=== PATIENT | female | born 1955 | race Caucasian/White ===

== ENCOUNTER 2024-04-09 08:36 | Outpatient (REF) | payer MEDICARE, SELFPAY ==
--- NOTE | ~2024-04-09 | XR_ITS ---
EXAMINATION: XR KNEE, RIGHT CLINICAL INFORMATION: M25.561 - Pain in right knee COMPARISON: None available. TECHNIQUE: Three views of the right knee. FINDINGS: Joint space narrowing involving the medial lateral compartment. Marginal osteophyte formation femoral condyles and tibial plateau. Sclerosis at the articular surface of the tibial plateau and femoral condyles. No acute cortical disruption or malalignment. Suprapatellar bursa joint effusion, small volume. No lytic or blastic lesions. XR/XR knee RT 3V IMPRESSION: Bicompartmental osteoarthrosis, moderate to severe. Electronically signed by: Ricki Yoder MD 04/09/2024 12:08 PM [facility]
--- OUTSIDE RECORDS SUMMARY | 2024-04-11 09:00 | XMS_ITS | Encounter Summary ---
Author Organization [employer] Address [address] [place] [address] 7 [place] [address] Care Team Providers Care Home Lighting Adviser Name Role Phone Unavailable Primary Care Provider Unavailabl e Reason for Visit * Reason Onset Date Comments new patient appt 09/19/2023 Encounter Details Date Type Department Care Team ([facility] st Contact Info) Description 09/19/2023 Telephone [facility] [address] [place], [place] [phone] Hudson Katz MD [address] [place], [place] [phone] new patient appt Social History Tobacco Use [...] EST Outgoing call to pt to book TICKET WRITER appt. ( Pt stated no longer interested. * Telephone Encounter - Liz De La Cruz - 09/19/2023 10:11 AM EDT Patient added [facility] New patient wait list as of 09/19/23. * Telephone Encounter - Horacio Gonzales - 09/19/2023 10:00 AM EDT TC from caller requesting NEW PATIENT visit . Medical Conditions: No Insurance name : [facility] Demographic information updated ; yes documented in this encounter Plan of Treatment Not on file documented as of this encounter Visit Diagnoses Not on filedocumented in this encounter
--- OUTSIDE RECORDS SUMMARY | 2024-04-11 09:00 | XMS_ITS | Clinical Summary ---
Author Organization [facility] Address [address] [place] [address] Care Team Providers Care Warehouse Engineer Name Role Phone Unavailable Primary Care Provider [...]
--- OUTSIDE RECORDS SUMMARY | 2024-04-11 09:01 | XMS_ITS | Clinical Summary ---
Author Organization [facility] Address [address] [place] [address] Care Team Providers Care Pack Changer Name Role Phone [place]-Hattie Vallejo MD Primary Care Provider Social History [...] standard practice guidelines of the ACR BI-RADS [place]. A reference guide is provided below. BREAST [...] Recently Relevant to Health Maintenance Care Teams Pack Changer Relationship Specialty Start Date End Date [place]-Hattie Vallejo MD [address] [place] [phone] PCP - General 06/05/16
--- OUTSIDE RECORDS SUMMARY | 2024-04-11 09:01 | XMS_ITS | Clinical Summary ---
Author Organization [facility] Address [address] [place] [address] Phone Care Team Providers Care Men'S And Boys' Clothing Salesperson Name Role Phone Angela Lua MD Primary [...] 2:00 PM EST Office Visit Adult Medicine [facility] [address] [place] [phone] Mitul Lopez PA Adult general medical examination (Primary Dx); Arthritis of right knee 01/30/2024 Telephone Adult Medicine [facility] [address] [place] [phone] Angela Lua MD from Last [...] older ([place]) 3 years and older 11/22/2015 [place] (ages 12 & older) MERRY S-CoV-2 COVID-19, [...] care for your loved ones. For example, director of child welfare services or elderly care for an older adult? [...] 06/02/2024 8:10 AM EDT Appointment Radiology Department [address] [phone] 02/11/2025 9:00 AM EST Office Visit Adult Medicine - [place] [address] [place] [phone] Mitul Lopez PA [address] [place] [address] Health Maintenance Due Date Last Done Comments [...] mg/dL LAB CHEMISTRY METHOD 02/12/2024 3:06 PM [facility] Triglycerides 143 0 - 150 mg/dL LAB CHEMISTRY METHOD 02/12/2024 3:06 PM [facility] HDL 73 >=40 mg/dL LAB CHEMISTRY METHOD 02/12/2024 3:06 PM [facility] LDL Calculated 92 0 - 100 mg/dL LAB CHEMISTRY METHOD 02/12/2024 3:06 PM [facility] VLDL Cholesterol Javier 28.6 mg/dL LAB CHEMISTRY METHOD 02/12/2024 3:06 PM [facility] Non HDL Chol. (LDL+VLDL) 121 <145 mg/dL LAB CHEMISTRY METHOD 02/12/2024 3:06 PM [facility] Chol/HDL Ratio 2.7 0.0 - 4.4 LAB CHEMISTRY METHOD 02/12/2024 3:06 PM [facility] Blood Venous blood specimen / Unknown Venipuncture / Unknown 02/12/2024 9:45 AM EST 02/12/2024 9:45 AM EST Mitul TESFAYE LAB BLOOD ORDERABLES [facility] [address] [place] [address], * CBC auto differential (02/12/2024 9:45 AM EST) WBC 7.4 4.8 - 10.8 K/mcL LAB HEMETOLOGY METHOD 02/12/2024 12:19 PM [facility] RBC 4.40 3.80 - 4.80 M/mcL LAB HEMETOLOGY METHOD 02/12/2024 12:19 PM [facility] Hemoglobin 13.7 11.5 - 16.0 g/dL LAB HEMETOLOGY METHOD 02/12/2024 12:19 PM [facility] Hematocrit 42.1 35.0 - 47.0 % LAB HEMETOLOGY METHOD 02/12/2024 12:19 PM [facility] MCV 95.0 79.0 - 98.0 FL LAB HEMETOLOGY METHOD 02/12/2024 12:19 PM [facility] MCH 30.9 27.0 - 32.0 pcg LAB HEMETOLOGY METHOD 02/12/2024 12:19 PM [facility] MCHC 32.5 32.0 - 37.0 g/dL LAB HEMETOLOGY METHOD 02/12/2024 12:19 PM [facility] RDW 12.3 11.0 - 15.0 % LAB HEMETOLOGY METHOD 02/12/2024 12:19 PM [facility] Platelets 236 130 - 400 K/mcL LAB HEMETOLOGY METHOD 02/12/2024 12:19 PM [facility] MPV 10.7 7.0 - 11.0 FL LAB HEMETOLOGY METHOD 02/12/2024 12:19 PM [facility] NRBC 0.0 <1.0 % LAB HEMETOLOGY METHOD 02/12/2024 12:19 PM [facility] NRBC Absolute 0.00 <0.10 K/mcL LAB HEMETOLOGY METHOD 02/12/2024 12:19 PM [facility] Neutrophils Relative 62.1 % LAB HEMETOLOGY METHOD 02/12/2024 12:19 PM [facility] Lymphocytes Relative 25.7 % LAB HEMETOLOGY METHOD 02/12/2024 12:19 PM [facility] Monocytes Relative 8.7 % LAB HEMETOLOGY METHOD 02/12/2024 12:19 PM [facility] Eosinophils Relative 2.3 % LAB HEMETOLOGY METHOD 02/12/2024 12:19 PM [facility] Basophils Relative 0.8 % LAB HEMETOLOGY METHOD 02/12/2024 12:19 PM [facility] Immature Granulocytes Relative 0.4 % LAB HEMETOLOGY METHOD 02/12/2024 12:19 PM [facility] Neutrophils Absolute 4.62 1.50 - 7.00 K/mcL LAB HEMETOLOGY METHOD 02/12/2024 12:19 PM [facility] Lymphocytes Absolute 1.91 1.00 - 5.00 K/mcL LAB HEMETOLOGY METHOD 02/12/2024 12:19 PM [facility] Monocytes Absolute 0.65 0.20 - 1.00 K/mcL LAB HEMETOLOGY METHOD 02/12/2024 12:19 PM [facility] Eosinophils Absolute 0.17 0.00 - 0.50 K/mcL LAB HEMETOLOGY METHOD 02/12/2024 12:19 PM EST [facility] Basophils Absolute 0.06 0.00 - 0.20 K/mcL LAB HEMETOLOGY METHOD 02/12/2024 12:19 PM [facility] Immature Granulocytes Absolute 0.03 0.00 - 0.03 K/mcL LAB HEMETOLOGY METHOD 02/12/2024 12:19 PM [facility] Blood Venous blood specimen / Unknown Venipuncture / Unknown 02/12/2024 9:45 AM EST 02/12/2024 9:45 AM EST Mitul TESFAYE LAB BLOOD ORDERABLES [facility] [address] [place] [address], * Comprehensive metabolic panel (02/12/2024 9:45 AM EST) Sodium 141 133 - 145 mmol/L LAB CHEMISTRY METHOD 02/12/2024 3:06 PM [facility] Potassium 4.1 3.5 - 5.5 mmol/L LAB CHEMISTRY METHOD 02/12/2024 3:06 PM [facility] Chloride 106 96 - 110 mmol/L LAB CHEMISTRY METHOD 02/12/2024 3:06 PM [facility] CO2 27 21 - 32 mmol/L LAB CHEMISTRY METHOD 02/12/2024 3:06 PM [facility] Anion Gap 8 3 - 11 LAB CHEMISTRY METHOD 02/12/2024 3:06 PM [facility] Glucose 88 70 - 100 mg/dL LAB CHEMISTRY METHOD 02/12/2024 3:06 PM [facility] BUN 21 5 - 25 mg/dL LAB CHEMISTRY METHOD 02/12/2024 3:06 PM [facility] Creatinine 0.96 0.50 - 1.10 mg/dL LAB CHEMISTRY METHOD 02/12/2024 3:06 PM [facility] eGFR 65 >=60 mL/min/1. 73m2 LAB CHEMISTRY METHOD 02/12/2024 3:06 PM [facility] Comment:Calculation based on the??Chronic Kidney Disease Epidemiology Collaboration (CKD-EPI) equation refit??without adjustment for race. BUN/Creatinine Ratio 21.9 LAB CHEMISTRY METHOD 02/12/2024 3:06 PM [facility] Calcium 9.9 8.5 - 10.5 mg/dL LAB CHEMISTRY METHOD 02/12/2024 3:06 PM [facility] AST (SGOT) 25 10 - 42 unit/L LAB CHEMISTRY METHOD 02/12/2024 3:06 PM [facility] ALT (SGPT) 30 10 - 60 unit/L LAB CHEMISTRY METHOD 02/12/2024 3:06 PM [facility] Alkaline Phosphatase 86 42 - 121 unit/L LAB CHEMISTRY METHOD 02/12/2024 3:06 PM [facility] Total Protein 7.8 6.0 - 8.0 g/dL LAB CHEMISTRY METHOD 02/12/2024 3:06 PM [facility] Albumin 4.0 3.2 - 5.0 g/dL LAB CHEMISTRY METHOD 02/12/2024 3:06 PM [facility] Total Bilirubin 0.4 0.0 - 1.4 mg/dL LAB CHEMISTRY METHOD 02/12/2024 3:06 PM [facility] Blood Venous blood specimen / Unknown Venipuncture / Unknown 02/12/2024 9:45 AM EST 02/12/2024 9:45 AM EST Mitul TESFAYE LAB BLOOD ORDERABLES [facility] [address] [place] [address], * SCREENING MAMMOGRAPHY BI 2-VIEW BREAST INC [...] (World Health Organization Fracture Risk Assessment) [facility] Department of Internal Medicine recommends using National [...] alternative screening schedule based on lamont Ascencio., [facility] March 23, 2011 for patients with osteopenia [...] (World Health Organization Fracture Risk Assessment) [facility] of [facility] Medicinerecommends using National Osteoporosis [...] IMG DXA PROCED URES * Colonoscopy (11/19/2019) [facility] Colonoscopy No interpretation , abstracted Anatomical Region Laterality Modality Other Historical Provider [facility] * Hepatitis C Screening (05/28/2017) [facility] Hepatitis C Screening abstracted Historical Provider MD [facility] from Last 3 Months or Most Recently Relevant to Health Maintenance Care Teams Men'S And Boys' Clothing Salesperson Relationship Specialty Start Date End Date Angela Lua MD [address] [place] [phone] PCP - General Internal Medicine 11/17/21
--- OUTSIDE RECORDS SUMMARY | 2024-04-11 09:01 | XMS_ITS | Clinical Summary ---
Author Organization [employer] Address [address] [place] [address] 7 [place] [address] Care Team Providers Care Bias Cutter Name Role Phone Unavailable Primary Care Provider [...] patient's age to complete this topic Insurance [facility]
== END 2024-04-09 08:37 | disposition home or self-care (01) ==
LOC: HO.HOSX 08:36
PROVIDERS: Visit Provider Orthopaedic Surgery
DX: M25.561 Pain in right knee (principal); M17.11 Unilateral primary osteoarthritis, right knee
CPT/HCPCS: 73562; 99202

== ENCOUNTER 2024-04-09 10:42 | Outpatient (AMB) | payer MEDICARE, SELFPAY ==
--- NOTE | 2024-04-09 10:44 | A.OFFVIS_ITS ---
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 She describes her pain as sharp and severe in nature. Most of the pain is along the medial aspect of her knee. She states that her right knee pain has gotten worse over the last 10 years in spite of continued non operative treatments. She has had cortisone injections in the past. The most recent injection gave her minimal relief. She has not had a viscosupplementation injection. She has failed the last 3 months of conservative treatment which has included physical therapy exercises, Tylenol and anti-inflammatory medicines. The patient has difficulty walking even short distances because of her right knee pain. At this point her right knee pain is interfering with her activities of daily living and her ability to sleep well through the night. She wishes to hold off on right total knee replacement surgery if at all possible. Allergies No Known Allergies Allergy (Verified 04/09/24 10:57) Medication List - Last Reconciled 04/09/24 by Andre Morelos MD No Known Home Meds Physical Exam Vital Signs: BMI result Body Mass Index 36.6 Const Other: Well-nourished well-developed very friendly female awake alert and oriented x3 in no acute distress Extrem Other: Bilateral lower extremity examination shows good capillary refill, no skin lesions noted, normal sensation light touch Right knee examination shows a minimal effusion, palpable crepitus with range of motion, pain with range of motion, range of motion from -3 degrees to 110 degrees, no instability Results Reviewed Results Reviewed: X-rays of the patient's right knee taken today show severe joint space narrowin g, subchondral sclerosis, no acute bony abnormalities Assessment & Plan Assessment & Plan (1) Osteoarthritis of right knee: Code(s): M17.11 - Unilateral primary osteoarthritis, right knee Category: Medical Plan Ms. Barth presents with progressively worsening right knee pain due to osteoarthritis. I had a lengthy discussion with the patient regarding the treatment options. She wishes to hold off on total knee replacement surgery for as long as possible. I agree with this plan. She has had cortisone injection treatment in the past. The most recent injection gave her minimal relief. Thus, I will see whether or not her insurance company will cover a viscosupplementation injection, such as Durolane. I will see her back once the injection is available. Feel free to call me at any time should questions regarding her orthopedic management arise. I spent 21 minutes in reviewing the patient's records and imaging studies, seeing the patient and documenting in the medical record. Orders: Orders XR knee RT 3V Today M25.561 - Pain in right knee Coding Level of Care Code New Pt Level 3 (81158) Complex EM visit Add On G2211 Diagnoses Osteoarthritis of right knee M17.11
[2024-04-09 10:57] VITALS: BMI 36.6
--- OUTSIDE RECORDS SUMMARY | 2024-04-09 11:50 | XMS_ITS | Encounter Summary ---
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 Role Phone Unavailable Primary Care Provider Unavailabl e Reason for Visit * Reason Onset Date Comments new patient appt 09/19/2023 Encounter Details Date Type Department Care Team ([facility] st Contact Info) Description 09/19/2023 Telephone [facility] [address] [place], [place] [phone] Hudson Katz MD [address] [place], [place] [phone] new patient appt Social History Tobacco Use Types Packs/Day Years Used Date Smoking Tobacco: Never Assessed Comments Unknown Sex and Gender Information Value Date Recorded Sex Assigned at Not on file Legal Sex Female 9:57 AM EDT Gender Identity Not on file Sexual Orientation Not on file documented as of this encounter Miscellaneous Notes * Telephone Encounter - Liz De La Cruz - 04/02/2024 10:27 AM EST Outgoing call to pt to book [employer] COORDINATOR appt. ( Pt stated no longer interested. * Telephone Encounter - Liz De La Cruz - 09/19/2023 10:11 AM EDT Patient added to [facility] New patient wait list as of 09/19/23. * Telephone Encounter - Horacio Gonzales - 09/19/2023 10:00 AM EDT TC from caller requesting NEW PATIENT visit . Medical Conditions: No Insurance name : [facility] Demographic information updated ; yes documented in this encounter Plan of Treatment Not on file documented as of this encounter Visit Diagnoses Not on filedocumented in this encounter
--- OUTSIDE RECORDS SUMMARY | 2024-04-09 11:50 | XMS_ITS | Clinical Summary ---
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 Name Role Phone Unavailable Primary Care Provider Unavailabl e Social History Tobacco Use Types Packs/Day Years Used Date Smoking Tobacco: Never Assessed Sex and Gender Information Value Date Recorded Sex Assigned at Not on file Gender Identity Not on file Sexual Orientation Not on file Job Start Date Occupation Industry Not on file Not on file Not on file Plan of Treatment Health Maintenance Due Date Last Done Comments Hepatitis C Screening 1955 COVID-19 Vaccine (#1) 05/23/1957 Depression Screening 1968 Preventative Health Evaluation 1974 DTap / Tdap / Td (1 - Tdap) 11/24/1975 Colon Cancer Screening (Colonoscopy) 2001 Breast Cancer Screening (Mammogram) 2006 Shingrix-Zoster Vaccine (1 of 2) 2006 Fall Risk Assessment 2021 Osteoporosis Screening (DEXA Scan) 2021 Pneumococcal Vaccine (1 of 1 - PCV) 2021 Influenza Vaccine (#1) 2023 RSV Adult > 60+ Yrs or Pregn ant (1 - 1-dose 75+ series) 11/24/2031 Hepatitis B Vaccines Aged Out No long er eligible based on patient's age to complete this topic RSV Ped < 20 months Aged Out No longe r eligible based on patient's age to complete this topic
--- OUTSIDE RECORDS SUMMARY | 2024-04-09 11:50 | XMS_ITS | Clinical Summary ---
Author Organization [facility] [address] [facility] Address [address] [place] [address] Phone Care Team Providers Care Box Person Name Role Phone Angela Lua MD Primary Care Provider Allergies Active Allergy Reactions Criticality Noted Date Comments Other 05/14/2014 Medications Medication Sig Dispensed Refills Start Date End Date Status multivitamin tablet Take 1 tablet by mouth 1 (one) time each day. Active gluc/chondr-msm 7/C/jihan/boron (GLUCOSAMINE-CHONDR, BOSWELLIA, ORAL) Take by mouth. Acti ve Active Problems Problem Noted Date Diagnosed Date Overweight 11/13/2019 Effusion of left knee 11/13/2019 Arthritis of knee 05/30/2018 Osteopenia 07/31/2017 Bilateral leg edema 05/28/2017 Stress incontinence 05/17/2015 S/P laparoscopic cholecystectomy 05/17/2015 Allergic rhinitis 05/23/2014 Asthma 05/14/2014 Encounters Date Type Department Care Team Description 02/08/2024 2:00 PM EST Office Visit Adult Medicine [facility] [address] [place] [address] Mitul Lopez PA Adult general medical examination (Primary Dx); Arthritis of right knee 01/30/2024 Telephone Adult Medicine [facility] [address] [place] [address] Angela Lua MD from Last 3 Months Immunizations Name Administration Dates Next Due Influenza Quadravalent, 0.5m l (Fluad) 65yo and older 11/29/2021 Influenza Quadravalent, 0.5m l (Fluzone High-dose) 65yo and older 11/13/2023,11/24/2022 Influenza Quadravalent, MDCK , 0.5ml, with preservative (Flucelvax) 6mo and older 10/22/2020,01/04/2020,12/07/2017 Influenza Quadrivalent, 0.5m l, preservative free (Fluarix; FluLaval; Fluzone) ages 6mo and older (Afluria) 3yo and older 01/04/2020 Influenza Quadrivalent, with preservative (Fluzone; Afluria) 6mo and older 10/22/2020 Influenza trivalent, 0.5mL ( Fluzone High-dose) 65yo and older 11/16/2023 Influenza trivalent, 0.5mL, preservative free (Fluarix; FluLaval; Fluzone) ages 6mo and older (Afluria) 3 years and older 11/22/2015 [employer] (ages 12 & older) MERRY S-CoV-2 COVID-19, mRNA, LNP-S, kamran-sucrose, preservative free 09/18/2021 Pneumococcal conjugate 13 va lent (Prevnar 13, PCV13) 2mo and older 05/04/2022 Pneumococcal conjugate 20 va lent (Prevnar 20, PCV 20) 2mo and older 11/24/2022 Pneumococcal polysaccharide 23 valent (Pneumovax 23) 2yo and older 05/14/2014 RSV, bivalent, protein subun it RSVpreF, 0.5mL, Preservative Free (ABRYSVO) 60yo and older or 32 through 36 wks of 11/24/2022,05/04/2022 Td Tetanus diptheria (Tdvax) 7yo and older 12/29 Zoster recombinant (Shingrix ) 19yo and older 03/01/2019 Surgical History Surgery Date Site/Laterality Comments KNEE SURGERY Right PROCEDURE: HISTORICAL KNEE SURGERY; COMMENT: knee ligament repair 1992 CHOLECYSTECTOMY 09/11/14 PROCEDURE: HISTORICAL CHOLECYSTECTOMY Medical History Medical History Date Comments Asthma 05/14/2014 DX:Asthma Allergic rhinitis 05/23/2014 DX:Allergic rh initis S/P laparoscopic cholecystectomy 05/17/2015 DX:S/P laparoscopic cholecystectomy Bilateral leg edema 05/28/2017 DX:Bilateral leg edema Osteopenia 07/31/2017 DX:Osteopenia Arthritis of knee 05/30/2018 DX:Arthritis o f knee Kidney stones Family History Medical History Relation Name Comments Breast cancer Aunt 1 P AUNT paternal, age 50s-60 Heart attack Father age 57, CHF Glaucoma Mother Relation Name Status Comments Aunt 1 P AUNT Aunt 2 Father Mother Social History Tobacco Use Types Packs/Day Years Used Date Smoking Tobacco: Former Cigarettes Q uit: 10/03/2010 Smokeless Tobacco: Never Tobacco Cessation:Counseling Given: Not Answered Alcohol Use Standard Drinks/Week Comments Yes 0 (1 standard drink = 0.6 oz pur e alcohol) Wine here Housing Instability Answer Date Recorde d Are you worried that in the next 2 months you may not have stable housing? No 02/01/2024 Food Access & Nutrition Answer Date Rec orded Do you have access to a vari ety of food including fruits and vegetables? Yes 02/01/2024 Access to Healthcare Answer Date Record ed Within the last 3 months, ho w many times did you visit the emergency department for your medical care? 0 02/01/2024 Health Literacy Answer Date Recorded How often do you need to hav e someone help you when you read instructions, pamphlets, or other written material from your doctor or pharmacy? Never 02/01/2024 Caregiver: How often do you need to have someone help you when you read instructions, pamphlets, or other written material from your doctor or pharmacy? Not on file 02/01/2024 Financial Risk Answer Date Recorded How hard is it for you to pa y for the very basics like food, housing, medical care, and air conditioning / heating? Not very hard 02/01/2024 Transportation Answer Date Recorded Has the lack of transportati on kept you from meetings, work, or from getting things needed for daily living? No Has the lack of transportati on kept you from medical appointments or from getting medications? No 02/01/2024 Social Isolation Answer Date Recorded How often do you feel lonely or isolated from th ose around you? Rarely 02/01/2024 Food Risk Answer Date Recorded Within the past 12 months we worried whether our food would run out before we got money to buy more. Never true 02/01/2024 Within the past 12 months th e food we bought just didn't last and we didn't have money to get more. Never true 02/01/2024 Dependent Care Answer Date Recorded Do you need help finding or paying for care for your loved ones. For example, children's author or elderly care for an older adult? No 02/01/2024 Education Answer Date Recorded Do you think completing more education or training, like finishing a GED, going to college, or learning a trade, would be helpful for you? No 02/01/2024 Employment and Income Answer Date Recor ded During the last four weeks, have you been actively looking for work? No 02/01/2024 Living Situation Answer Date Recorded What is your living situation? 1 04/02/2023 Sex and Gender Information Value Date Recorded Sex Assigned at Not on file Gender Identity Not on file Sexual Orientation Not on file Job Start Date Occupation Industry Not on file Not on file Not on file Obstetrics History Last Filed Vital Signs Vital Sign Reading Time Taken Comments Blood Pressure 134/85 02/08/2024 1:59 PM EST Pulse 79 02/08/2024 1:59 PM EST Temperature 36.5 ??C (97.7 ??F) 02/08/2024 1:59 PM ES T Respiratory Rate - - Oxygen Saturation - - Inhaled Oxygen Concentration - - Weight 91.6 kg (202 lb) 02/08/2024 1:59 PM EST Height 157.5 cm (5' 2 ) 02/08/2024 1:59 PM EST Body Mass Index 36.95 02/08/2024 1:59 PM EST Plan of Treatment Upcoming Encounters Date Type Department Care Team (Late st Contact Info) Description 06/02/2024 8:10 AM EDT Appointment Radiology Department [address] [address] 02/11/2025 9:00 AM EST Office Visit Adult Medicine - [facility] [address] [place] [address] Mitul Lopez PA [address] [place] [address] Health Maintenance Due Date Last Done Comments Zoster Vaccines (2 of 2) 04/26/2019 03/01/2019 Falls Risk Assessment 02/05/2022 Depression Screening 01/31/2025 02/01/2024 Social Influencers of Health Screening 01/31/2025 02/01/2024 Colorectal Cancer Screening: Stool Based Tests (FOBT/FIT) 02/04/2025 Breast Cancer Screening 05/17/2025 05/18/19 24, 07/06/2017, 06/21/2017 Cholesterol Screening (Lipid Panel) 02/11/2029 02/12/2024, 01/04/2023 DTaP,Tdap,and Td Vaccines (2 - Td or Tdap) 12/29/2032 12/29/2022 Osteoporosis Screening (Bone Density Screening) 03/16/2033 03/16/2023, 07/31/2017 Hepatitis C Screening Completed 05/28/2017 Colorectal Cancer Screening: Colonoscopy Discontinued 11/19/2019 Pneumococcal Vaccine: 65+ Years Completed 11/24/2022, 05/04/2022, 05/14/2014 RSV Immunization Patients 60+ Years Old Completed 11/24/2022, 05/04/2022 COVID-19 Vaccine Completed 11/16/2023, , 09/18/2021, Additional history exists Influenza Vaccine Completed 11/16/2023, , 11/24/2022, Additional history exists HIB Vaccines Aged Out No longer eligi ble based on patient's age to complete this topic HPV Vaccines Aged Out No longer eligi ble based on patient's age to complete this topic Hepatitis A Vaccines Aged Out No long er eligible based on patient's age to complete this topic Hepatitis B Vaccines Aged Out No long er eligible based on patient's age to complete this topic IPV Vaccines Aged Out No longer eligi ble based on patient's age to complete this topic MMR Vaccines Aged Out No longer eligi ble based on patient's age to complete this topic Meningococcal ACWY Vaccine Aged Out N o longer eligible based on patient's age to complete this topic RSV Immunization Patients Under 20 months Aged Out No longer eligible based on patient's age to complete this topic Varicella Vaccines Aged Out No longer eligible based on patient's age to complete this topic Procedures Procedure Name Priority Date/Time Associated Diagnosis Comments CBC WITH AUTO DIFFERENTIAL Routine 02/12/2024 9:45 AM EST Adult general medical examination LIPID PANEL WITH REFLEX TO DIRECT LDL Routine 02/12/2024 9:45 AM EST Adult general medical examination COMPREHENSIVE METABOLIC PANEL Routine 02/12/2024 9:45 AM EST Adult general medical examination CBC AND DIFFERENTIAL Routine 02/12/2024 9:45 AM EST Adult general medical examination SCREENING MAMMOGRAPHY BI 2-VIEW BREAST INC CAD Routine 05/18/2023 8:18 AM EDT Encounter for screening mammogram for malignant neoplasm of breast DXA BONE DENSITY STUDY 1+ SITS AXIAL SKEL Routine 03/16/2023 11:55 AM EST Asymptomatic menopausal state HM COLONOSCOPY Routine 11/19/2019 HEPATITIS C SCREENING Routine 05/28/2017 from Last 3 Months or Most Recently Relevant to Health Maintenance Results * Lipid panel with reflex to direct LDL (02/12/2024 9:45 AM EST) Cholesterol 194 0 - 200 mg/dL LAB CHEMISTRY METHOD 02/12/2024 3:06 PM [facility] Triglycerides 143 0 - 150 mg/dL LAB CHEMISTRY METHOD 02/12/2024 3:06 PM [facility] HDL 73 >=40 mg/dL LAB CHEMISTRY METHOD 02/12/2024 3:06 PM [facility] LDL Calculated 92 0 - 100 mg/dL LAB CHEMISTRY METHOD 02/12/2024 3:06 PM [facility] VLDL Cholesterol Javier 28.6 mg/dL LAB CHEMISTRY METHOD 02/12/2024 3:06 PM [facility] Non HDL Chol. (LDL+VLDL) 121 <145 mg/dL LAB CHEMISTRY METHOD 02/12/2024 3:06 PM [facility] Chol/HDL Ratio 2.7 0.0 - 4.4 LAB CHEMISTRY METHOD 02/12/2024 3:06 PM [facility] Blood Venous blood specimen / Unknown Venipuncture / Unknown 02/12/2024 9:45 AM EST 02/12/2024 9:45 AM EST Mitul TESFAYE LAB BLOOD ORDERABLES [facility] [address] [place] [address], * CBC auto differential (02/12/2024 9:45 AM EST) WBC 7.4 4.8 - 10.8 K/mcL LAB HEMETOLOGY METHOD 02/12/2024 12:19 PM [facility] RBC 4.40 3.80 - 4.80 M/mcL LAB HEMETOLOGY METHOD 02/12/2024 12:19 PM [facility] Hemoglobin 13.7 11.5 - 16.0 g/dL LAB HEMETOLOGY METHOD 02/12/2024 12:19 PM [facility] Hematocrit 42.1 35.0 - 47.0 % LAB HEMETOLOGY METHOD 02/12/2024 12:19 PM [facility] MCV 95.0 79.0 - 98.0 FL LAB HEMETOLOGY METHOD 02/12/2024 12:19 PM [facility] MCH 30.9 27.0 - 32.0 pcg LAB HEMETOLOGY METHOD 02/12/2024 12:19 PM [facility] MCHC 32.5 32.0 - 37.0 g/dL LAB HEMETOLOGY METHOD 02/12/2024 12:19 PM [facility] RDW 12.3 11.0 - 15.0 % LAB HEMETOLOGY METHOD 02/12/2024 12:19 PM [facility] Platelets 236 130 - 400 K/mcL LAB HEMETOLOGY METHOD 02/12/2024 12:19 PM [facility] MPV 10.7 7.0 - 11.0 FL LAB HEMETOLOGY METHOD 02/12/2024 12:19 PM [facility] NRBC 0.0 <1.0 % LAB HEMETOLOGY METHOD 02/12/2024 12:19 PM [facility] NRBC Absolute 0.00 <0.10 K/mcL LAB HEMETOLOGY METHOD 02/12/2024 12:19 PM [facility] Neutrophils Relative 62.1 % LAB HEMETOLOGY METHOD 02/12/2024 12:19 PM [facility] Lymphocytes Relative 25.7 % LAB HEMETOLOGY METHOD 02/12/2024 12:19 PM [facility] Monocytes Relative 8.7 % LAB HEMETOLOGY METHOD 02/12/2024 12:19 PM [facility] Eosinophils Relative 2.3 % LAB HEMETOLOGY METHOD 02/12/2024 12:19 PM [facility] Basophils Relative 0.8 % LAB HEMETOLOGY METHOD 02/12/2024 12:19 PM [facility] Immature Granulocytes Relative 0.4 % LAB HEMETOLOGY METHOD 02/12/2024 12:19 PM [facility] Neutrophils Absolute 4.62 1.50 - 7.00 K/mcL LAB HEMETOLOGY METHOD 02/12/2024 12:19 PM [facility] Lymphocytes Absolute 1.91 1.00 - 5.00 K/mcL LAB HEMETOLOGY METHOD 02/12/2024 12:19 PM [facility] Monocytes Absolute 0.65 0.20 - 1.00 K/mcL LAB HEMETOLOGY METHOD 02/12/2024 12:19 PM [facility] Eosinophils Absolute 0.17 0.00 - 0.50 K/mcL LAB HEMETOLOGY METHOD 02/12/2024 12:19 PM EST [facility] Basophils Absolute 0.06 0.00 - 0.20 K/mcL LAB HEMETOLOGY METHOD 02/12/2024 12:19 PM [facility] Immature Granulocytes Absolute 0.03 0.00 - 0.03 K/mcL LAB HEMETOLOGY METHOD 02/12/2024 12:19 PM [facility] Blood Venous blood specimen / Unknown Venipuncture / Unknown 02/12/2024 9:45 AM EST 02/12/2024 9:45 AM EST Mitul TESFAYE LAB BLOOD ORDERABLES [facility] [address] [place] [address], * Comprehensive metabolic panel (02/12/2024 9:45 AM EST) Sodium 141 133 - 145 mmol/L LAB CHEMISTRY METHOD 02/12/2024 3:06 PM [facility] Potassium 4.1 3.5 - 5.5 mmol/L LAB CHEMISTRY METHOD 02/12/2024 3:06 PM [facility] Chloride 106 96 - 110 mmol/L LAB CHEMISTRY METHOD 02/12/2024 3:06 PM [facility] CO2 27 21 - 32 mmol/L LAB CHEMISTRY METHOD 02/12/2024 3:06 PM [facility] Anion Gap 8 3 - 11 LAB CHEMISTRY METHOD 02/12/2024 3:06 PM [facility] Glucose 88 70 - 100 mg/dL LAB CHEMISTRY METHOD 02/12/2024 3:06 PM [facility] BUN 21 5 - 25 mg/dL LAB CHEMISTRY METHOD 02/12/2024 3:06 PM [facility] Creatinine 0.96 0.50 - 1.10 mg/dL LAB CHEMISTRY METHOD 02/12/2024 3:06 PM [facility] eGFR 65 >=60 mL/min/1. 73m2 LAB CHEMISTRY METHOD 02/12/2024 3:06 PM [facility] Comment:Calculation based on the??Chronic Kidney Disease Epidemiology Collaboration (CKD-EPI) equation refit??without adjustment for race. BUN/Creatinine Ratio 21.9 LAB CHEMISTRY METHOD 02/12/2024 3:06 PM [facility] Calcium 9.9 8.5 - 10.5 mg/dL LAB CHEMISTRY METHOD 02/12/2024 3:06 PM [facility] AST (SGOT) 25 10 - 42 unit/L LAB CHEMISTRY METHOD 02/12/2024 3:06 PM [facility] ALT (SGPT) 30 10 - 60 unit/L LAB CHEMISTRY METHOD 02/12/2024 3:06 PM [facility] Alkaline Phosphatase 86 42 - 121 unit/L LAB CHEMISTRY METHOD 02/12/2024 3:06 PM [facility] Total Protein 7.8 6.0 - 8.0 g/dL LAB CHEMISTRY METHOD 02/12/2024 3:06 PM [facility] Albumin 4.0 3.2 - 5.0 g/dL LAB CHEMISTRY METHOD 02/12/2024 3:06 PM [facility] Total Bilirubin 0.4 0.0 - 1.4 mg/dL LAB CHEMISTRY METHOD 02/12/2024 3:06 PM [facility] Blood Venous blood specimen / Unknown Venipuncture / Unknown 02/12/2024 9:45 AM EST 02/12/2024 9:45 AM EST Mitul TESFAYE LAB BLOOD ORDERABLES [facility] [address] [place] [address], * SCREENING MAMMOGRAPHY BI 2-VIEW BREAST INC CAD (05/18/2023 8:18 AM EDT) Anatomical Region Laterality Modality Radiographic Kristy ging 12/29/2022 8:59 AM EDT Narrative 05/18/2023 4:23 PM EDT This is a summary report. The complete report is available in the patient's medical record. If you cannot access the medical record, please contact the sending organization for a detailed fax or copy. Full field digital screening tomosynthesis mammography, reviewed with CAD and compared to previous mammogram of 06/21/2017. The breast tissue is heterogeneously dense, limiting sensitivity. No suspicious mass, architectural distortion or suspicious calcifications are identified. IMPRESSION: : Dense breast tissue, limiting the sensitivity of mammography. No mammographic evidence of malignancy. BIRADS 1-Negative; N. 5 year breast cancer risk assessment 1.6 % Lifetime breast cancer risk assessment 5.9 % Breast cancer risk category Low (<15%) Procedure Note Moni Alexis MD - 10/22/2023 This is a summary report. The complete report is available in thepatient's medical record. If you cannot access the medical record, pleasecontact the sending organization for a detailed fax or copy. Full field digital screening tomosynthesis mammography, reviewed with CADand compared to previous mammogram of 06/21/2017. The breast tissue isheterogeneously dense, limiting sensitivity. No suspicious mass,architectural distortion or suspicious calcifications are identified. IMPRESSION: : Dense breast tissue, limiting the sensitivity of mammography. Nomammographic evidence of malignancy. BIRADS 1-Negative; N. 5 year breast cancer risk assessment 1.6 % Lifetime breast cancer risk assessment 5.9 % Breast cancer risk category Low (<15%) Angela Lua MD IMG XR PROCEDU RES * DXA BONE DENSITY STUDY 1+ SITS AXIAL SKEL (03/16/2023 11:55 AM EST) Anatomical Region Laterality Modality Bone Densitometr y 12/29/2022 9:00 AM EDT Narrative 03/16/2023 12:41 PM EST BONE DENSITY (DEXA) ? Lumbar Spine T-score is 1.4. ?? (SD relative to 20-29 y/o adult) Z-score is 3.3. ??(SD relative to age matched peers) This is considered normal by WHO criteria. Left Hip T-score is -1.5. Z-score is 0.1. This is considered osteopenia by WHO criteria. There is mild curvature of the lumbar spine, convexity to the right. ?? IMPRESSION: This patient is considered to have osteopenia by WHO criteria. This patient has a 8.4% risk of major osteoporotic fracture and a 0.9% risk of hip fracture over the next 10 years. (World Health Organization Fracture Risk Assessment) [facility] Department of Internal Medicine recommends using National Osteoporosis Foundation (NOF) guidelines in treatment decisions related to osteoporosis. NOF guidelines suggest considering treatment for postmenopausal women and men aged 50 or older presenting with the following: History of hip or vertebral fracture. T-score = -2.5 (DXA) at the femoral neck, total hip, or spine, after appropriate evaluation to exclude secondary causes. Low bone mass (T-score between -1.0 and -2.5 at the femoral neck or spine) AND a 10-year probability of a hip fracture = 3% OR a 10-year probability of a major osteoporosis-related fracture = 20% based on the [place]-adapted WHO algorithm Please note that all treatment decisions require clinical judgment and consideration of individual patient factors, including patient preferences, co-morbidities, previous drug use, risk factors not captured in the FRAX model (e.g., frailty, falls, vitamin D deficiency, increased bone turnover, interval significant decline in bone density) and possible under- or over-estimation of fracture risk by FRAX. Optional alternative screening schedule based on lamont Ascencio., [facility] March 23, 2011 for patients with osteopenia (based on hip BMD T-score) is as follows: * ??advanced osteopenia (T scores -2.00 to -2.49), BMD testing every year * ??moderate osteopenia (T scores -1.50 to -1.99), BMD testing every 5 years mild osteopenia or normal BMD (T scores -1.50 and higher), BMD testing every 15 years Procedure Note Moni Alexis MD - 10/22/2023 BONE DENSITY (DEXA) Lumbar Spine T-score is 1.4. (SD relative to 20-29 y/o adult) Z-score is 3.3. (SD relative to age matched peers) This is considered normal by WHO criteria. Left Hip T-score is -1.5. Z-score is 0.1. This is considered osteopenia by WHO criteria. There is mild curvature of the lumbar spine, convexity to the right. IMPRESSION: This patient is considered to have osteopenia by WHO criteria. Thispatient has a 8.4% risk of major osteoporotic fracture and a 0.9% risk of hip fracture over the next10 years. (World Health Organization Fracture Risk Assessment) [facility] Department of Internal Medicinerecommends using National Osteoporosis Foundation (NOF) guidelines in treatment decisionsrelated to osteoporosis. NOF guidelines suggest considering treatment forpostmenopausal women and men aged 50 or older presenting with the following: History of hip or vertebral fracture. T-score = -2.5 (DXA) at the femoral neck, total hip, or spine, afterappropriate evaluation to exclude secondary causes. Low bone mass (T-score between -1.0 and -2.5 at the femoral neck or spine)AND a 10-year probability of a hip fracture = 3% OR a 10-year probability of a majorosteoporosis-related fracture = 20% based on the [place]-adapted WHO algorithm Please note that all treatment decisions require clinical judgment andconsideration of individual patient factors, including patient preferences, co- morbidities,previous drug use, risk factors not captured in the FRAX model (e.g., frailty, falls, vitaminD deficiency, increased bone turnover, interval significant decline in bone density) andpossible under- or over-estimation of fracture risk by FRAX. Optional alternative screening schedule based on lamont Ascencio., NEJMJanuary 2011 for patients with osteopenia (based on hip BMD T-score) is as follows: * advanced osteopenia (T scores -2.00 to -2.49), BMD testing every year * moderate osteopenia (T scores -1.50 to -1.99), BMD testing every 5years mild osteopenia or normal BMD (T scores -1.50 and higher), BMD testingevery 15 years Angela Lua MD IMG DXA PROCED URES * Colonoscopy (11/19/2019) [facility] Colonoscopy No interpretation , abstracted Anatomical Region Laterality Modality Other Historical Provider [facility] * Hepatitis C Screening (05/28/2017) [facility] Hepatitis C Screening abstracted Historical Provider MD [facility] from Last 3 Months or Most Recently Relevant to Health Maintenance Care Teams Box Person Relationship Specialty Start Date End Date Angela Lua MD [address] [place] [id number] PCP - General Internal Medicine 11/17/21
--- OUTSIDE RECORDS SUMMARY | 2024-04-09 11:50 | XMS_ITS | Clinical Summary ---
Author Organization [facility] Address [address] [place] [id number] Care Team Providers Care Shoulder Joiner Name Role Phone Kenna-Hattie Vallejo MD Primary Care Provider Social History Tobacco Use Types Packs/Day Years Used Date Smoking Tobacco: Never Assessed Sex and Gender Information Value Date Recorded Sex Assigned at Not on file Gender Identity Not on file Sexual Orientation Not on file Plan of Treatment Health Maintenance Due Date Last Done Comments Hepatitis C Virus Screening 1956 DTaP/Tdap/Td Vaccines (1 - Tdap) 11/24/1975 Colonoscopy 2001 Pneumococcal Vaccines 50+ (1 of 1 - PCV) 2006 Zoster (Shingles) Vaccine (1 of 2) 2006 Mammogram 06/22/2019 06/21/2017, 06/03, 06/15/2015, Additional history exists DXA Bone Density (Females,Ages 65 and older) 2021 Influenza Vaccine 10/04/2023 COVID-19 Vaccine ( - 2023- season) 2023 RSV Vaccine 60 years and older and Patients (1 - 1-dose 75+ series) 11/24/2031 Hepatitis B Vaccines Aged Out No long er eligible based on patient's age to complete this topic Procedures Procedure Name Priority Date/Time Associated Diagnosis Comments MM MAMMOGRAM SCREENING-BILAT (MOBILE) Routine 06/21/2017 9:30 AM EDT Breast screening from Last 3 Months or Most Recently Relevant to Health Maintenance Results * (ABNORMAL) MM Mammogram screening-Bilateral (mobile) (06/21/2017 9:30 AM EDT) Anatomical Region Laterality Modality Breast Bilateral Mammography 06/21/2017 4:35 PM EDT Impressions 06/21/2017 4:42 PM EDT No mammographic evidence of malignancy in the right breast. Indeterminate left breast area of architectural distortion. OVERALL ASSESSMENT: BI-RADS 0 - Incomplete: Needs additional imaging. RECOMMENDATION: Spot compression CC and MLO views. Ultrasound if indicated. A letter was sent to the patient. *BREAST COMPOSITION Breast composition descriptions are based on the standard practice guidelines of the ACR BI-RADS [place]. A reference guide is provided below. BREAST COMPOSITION CATEGORIES - BI-RADS VERSION V a. The breasts are almost entirely fatty. b. There are scattered areas of fibroglandular density. c. The breasts are heterogeneously dense, which may obscure small masses. d. The breasts are extremely dense, which lowers the sensitivity of mammography. Patients in categories c and d may qualify for supplemental screening exams. Narrative 06/21/2017 4:42 PM EDT EXAMINATION: BILATERAL DIGITAL SCREENING MAMMOGRAM CLINICAL INFORMATION: Screening. COMPARISON: June 10, 2014, May 04, 2012, June 15, 2015 and June 15, 2016 mammograms TECHNIQUE: Bilateral full field direct digital mammography was performed in the standard projections. Computer-aided detection was utilized by the radiologist in the interpretation of this examination. FINDINGS: The breasts are heterogeneously dense which may obscure small masses. (ACR BI-RADS breast composition Category c)*. Right breast: There are no suspicious masses, grouped calcifications or architectural distortion. Left breast: There are no suspicious masses, grouped calcifications. There is an area of subtle architectural distortion in the superior left breast, located about 6.3 cm from the nipple and seen on MLO view. Further evaluation by left MLO spot compression view, a standard left ML view and left ultrasound is suggested. Rad-Self Referred MD IMG MAMMOGRAPHY ORD ERABLES from Last 3 Months or Most Recently Relevant to Health Maintenance Care Teams Shoulder Joiner Relationship Specialty Start Date End Date Kenna-Hattie Vallejo MD [address] [place] [phone] PCP - General 06/05/16
--- OUTSIDE RECORDS SUMMARY | 2024-04-09 11:50 | XMS_ITS | Clinical Summary ---
Author Organization [employer] Address [address] [place] [address] 7 [place] [address] Care Team Providers Care Director Of Product Design Name Role Phone Unavailable Primary Care Provider Unavailabl e Social History Tobacco Use Types Packs/Day Years Used Date Smoking Tobacco: Never Assessed Comments Unknown Sex and Gender Information Value Date Recorded Sex Assigned at Not on file Legal Sex Female 9:57 AM EDT Gender Identity Not on file Sexual Orientation Not on file Plan of Treatment Health Maintenance Due Date Last Done Comments CT Colonography 1956 Colonoscopy 1956 Colorectal Cancer Screening 1956 Depression Screening 1956 FIT DNA/Cologuard 1956 FIT 1956 FOBT 1956 SDOH Screening 1956 Sigmoidoscopy 1956 Alcohol/Substance Use Screening 1968 Tobacco Screening 1968 Hepatitis C Screening 1974 RSV Patients and Patients Aged 60 years or older (1 - Risk 60-74 years 1-dose series) 2016 Zoster Vaccines (2 of 2) 04/26/2019 03/01/2019 Mammogram 07/07/2019 07/06/2017, 06/03, 06/15/2016 DTaP/Tdap/Td Vaccines (1 - Tdap) 12/30/2022 12/29/2022 COVID-19 Vaccine (2 - season) 2023 09/18/2021 Pneumococcal Vaccine: 50+ Years Completed 11/24/2022, 05/04/2022, 05/14/2014 Influenza Vaccine Completed 11/16/2023, , 11/24/2022, Additional [...] patient's age to complete this topic Meningococcal Vaccine Aged Out No mary brandon eligible based on patient's age to complete this topic RSV under 20 months Aged Out No longe r eligible based on patient's age to complete this topic Rotavirus Vaccines Aged Out No longer eligible based on patient's age to complete this topic Insurance [facility]
== END 2024-04-09 11:15 | disposition home or self-care (01) ==
PROVIDERS: Visit Provider Orthopaedic Surgery
DX: M17.11 Unilateral primary osteoarthritis, right knee (principal)
CPT/HCPCS: 99203; G2211

== ENCOUNTER → 2024-04-09 10:45 | Outpatient (BNV) | payer MEDICARE, SELFPAY | PROVIDERS: Visit Provider Radiology Diagnostic Radiology | DX: M17.11 Unilateral primary osteoarthritis, right knee (principal) | CPT/HCPCS: 73562 ==

== ENCOUNTER 2024-05-22 10:52 | Outpatient (AMB) | payer MEDICARE, SELFPAY ==
--- NOTE | 2024-05-22 10:56 | A.OFFVIS_ITS ---
Intake Visit Reasons: Inj- Right knee Durolane inj Intake Note: Jennifer is a 68 year old female who presents with complaints of right knee pain. She describes her pain as sharp in nature. She has failed the last 3 months of conservative treatment. She has tried physical therapy exercises which aggravated her pain. She has also tried Tylenol and anti-inflammatory medicines which gave her minimal relief. She wishes to hold off on surgery if at all possible. Allergies No Known Allergies Allergy (Verified 04/09/24 10:57) Medication List - Last Reconciled 05/22/24 by Andre Morelos MD No Known Home Meds Physical Exam Const Other: Well-nourished well-developed very friendly female awake alert and oriented x3 in no acute distress Extrem Other: Bilateral lower extremity examination shows good capillary refill, no skin lesions noted, normal sensation light touch Right knee examination shows a minimal effusion, palpable crepitus with range of motion, pain with range of motion, no instability Office Procedures AMB Joint Injection/Aspiration Joint Injection/Aspiration Primary Site: right knee Prep: site was prepped using aseptic technique Injected: 60 mg of (Durolane viscosupplementation) and 1% plain lidocaine Procedure: The patient tolerated the procedure well Coding 92110 - Large joint Procedure code (CPT) selection complete Results Reviewed Results Reviewed: X-rays of the patient's right knee taken previously show joint space narrowing, subchondral sclerosis, no acute bony abnormalities Assessment & Plan Assessment & Plan (1) Osteoarthritis of right knee: Code(s): M17.11 - Unilateral primary osteoarthritis, right knee Category: Medical Plan Ms. Barth presents with right knee pain due to degenerative joint disease. I had a lengthy discussion with the patient regarding the treatment options. She wishes to hold off on surgery for as long as possible. I agree with this plan. The risks and benefits of a right knee Durolane viscosupplementation inje ction were discussed at length with the patient. The patient wished to proceed. She tolerated the injection well. She will continue with her home exercise program. She will contact me prior to her follow-up appointment in 3 months should any questions or concerns arise. Feel free to call me at any time should questions regarding her orthopedic management arise. I spent 20 minutes in reviewing the patient's records and imaging studies, seeing the patient and documenting in the medical record. Orders: Orders AMB Joint Injection/Aspiration Today M17.11 - Unilateral primary osteoarthritis, right knee Coding Level of Care Code Est Pt Level 3 (85706) Complex EM visit Add On G2211 Diagnoses Osteoarthritis of right knee M17.11 CPT Codes Coding - 72053 Large joint: 78346 - Large joint ([id number])
--- OUTSIDE RECORDS SUMMARY | 2024-05-22 12:48 | XMS_ITS | Clinical Summary ---
Author Organization [employer] Address [address] [place] [address] [address] [place] [address] Care Team Providers Care Educational Technology Coordinator Name Role Phone Unavailable Primary Care Provider [...] of 2) 04/26/2019 03/01/2019 Mammogram 07/07/2019 07/06/2017, 0506/2017, 06/21/2017, Additional history exists DTaP/Tdap/Td Vaccines (1 - Tdap) 12/30/2022 12/29/2022 [...] patient's age to complete this [place] [id number] [facility]
--- OUTSIDE RECORDS SUMMARY | 2024-05-22 12:48 | XMS_ITS | Clinical Summary ---
Author Organization [facility] Address [address] [place] [address] Care Team Providers Care Umbrella Cutter Name Role Phone [place]-Hattie Vallejo MD Primary Care Provider Social History [...] standard practice guidelines of the ACR BI-RADS [place]. A reference guide is provided below. BREAST [...] Recently Relevant to Health Maintenance Care Teams Umbrella Cutter Relationship Specialty Start Date End Date Oneida-Hattie Vallejo MD [address] [place] [phone] PCP - General 06/05/16
--- OUTSIDE RECORDS SUMMARY | 2024-05-22 12:48 | XMS_ITS | Clinical Summary ---
Author Organization [facility] [address] [facility] lding Address [address] [place] [address] Phone Care Team Providers Care Design Painter Name Role Phone Angela Lua MD Primary Care Provider Allergies Active Allergy Reactions Criticality Noted Date Comments Other 05/14/2014 Medications multivitamin tablet Take 1 tablet by mouth 1 (one) time each day. Active gluc/chondr-msm 7/C/jihan/boron (GLUCOSAMINE-CHO NDR, BOSWELLIA, ORAL) Take by mouth. Active Active Problems Problem Noted Date Diagnosed Date Overweight 11/13/2019 Effusion of left knee 11/13/2019 Arthritis of knee 05/30/2018 Osteopenia 07/31/2017 Bilateral leg edema 05/28/2017 Stress incontinence 05/17/2015 S/P laparoscopic cholecystectomy 05/17/2015 Allergic rhinitis 05/23/2014 Asthma 05/14/2014 Immunizations Name Administration Dates Next Due Influenza [...] older (Afluria) 3 years and older 11/22/2015 Pfizer (ages 12 & older) MERRY S-CoV-2 COVID-19, [...] HISTORICAL KNEE SURGERY; COMMENT: knee ligament repair 1991 CHOLECYSTECTOMY 09/11/14 PROCEDURE: HISTORICAL CHOLECYSTECTOMY Medical History [...] care for your loved ones. For example, child day care provider or elderly care for an older adult? [...] What is your living situation? 1 04/02/2023 Comments No Sex and Gender Information Value Date Recorded Sex Assigned at Not on file Legal Sex Female 2:31 AM EST Gender Identity Not on file Sexual Orientation Not on file Obstetrics History Last Filed [...] 06/02/2024 8:10 AM EDT Appointment Radiology Department [address] [address] 02/11/2025 9:00 AM EST Office Visit Adult Medicine - [address] [id number] Mitul Lopez PA [address] [place] [address] Health Maintenance Due Date Last Done Comments [...] Cancer Screening: Colonoscopy Discontinued 11/19/2019 Pneumococcal Vaccine: 50+ Years Completed 11/24/2022, 05/04/2022, 05/14/2014 RSV Immunization [...] patient's age to complete this topic Meningococcal B Vacine Aged Out No lo nger eligible based on patient's age to complete this topic RSV Immunization Patients Under 20 months Aged Out No longer eligible based on patient's age to complete this topic Varicella Vaccines Aged Out No longer eligible based on patient's age to complete this topic Procedures Procedure Name Priority Date/Time Associated Diagnosis Comments LIPID PANEL WITH REFLEX TO DIRECT LDL [...] mg/dL LAB CHEMISTRY METHOD 02/12/2024 3:06 PM EST [facility] Triglycerides 143 0 - 150 mg/dL LAB CHEMISTRY METHOD 02/12/2024 3:06 PM EST [facility] HDL 73 >=40 mg/dL LAB CHEMISTRY METHOD 02/12/2024 3:06 PM EST [facility] LDL Calculated 92 0 - 100 mg/dL LAB CHEMISTRY METHOD 02/12/2024 3:06 PM EST [facility] VLDL Cholesterol Javier 28.6 mg/dL LAB CHEMISTRY METHOD 02/12/2024 3:06 PM EST [facility] Non HDL Chol. (LDL+VLDL) 121 <145 mg/dL LAB CHEMISTRY METHOD 02/12/2024 3:06 PM EST [facility] Chol/HDL Ratio 2.7 0.0 - 4.4 LAB CHEMISTRY METHOD 02/12/2024 3:06 PM EST [facility] Blood Venous blood specimen / Unknown Venipuncture / Unknown 02/12/2024 9:45 AM EST 02/12/2024 9:45 AM EST us Mitul [facility] LAB BLOOD ORDERABLES Final Re sult [facility] [address] [place] [address], * SCREENING MAMMOGRAPHY BI 2-VIEW BREAST INC [...] Low (<15%) Angela Lua MD IMG XR PROCEDURES [place] l Result * DXA BONE DENSITY STUDY 1+ SITS [...] (World Health Organization Fracture Risk Assessment) [facility] Department of Internal Medicine recommends using [...] alternative screening schedule based on lamont [employer] [facility] March 23, 2011 for patients with osteopenia [...] (World Health Organization Fracture Risk Assessment) [facility] Department of Internal Medicinerecommends using National [...] 15 years Angela Lua MD IMG DXA PROCEDURES Fin al Result * Colonoscopy (11/19/2019) Colonoscopy No interpretation , abstracted Anatomical Region Laterality Modality Other Historical Provider HEALTH MAINTENANCE Final Result * Hepatitis C Screening (05/28/2017) Hepatitis C Screening abstracted Historical Provider HEALTH MAINTENANCE Final Result from Last 3 Months or Most Recently Relevant to Health [place] [id number] [employer] Care Teams Design Painter Relationship Specialty Start Date End Date Angela Lua MD [address] [place] [id number] PCP - General Internal Medicine 11/17/21
--- OUTSIDE RECORDS SUMMARY | 2024-05-22 12:48 | XMS_ITS | Clinical Summary ---
Author Organization [facility] Address [address] [place] [address] Care Team Providers Care [employer] Clerk Name Role Phone Unavailable Primary Care [...]
== END 2024-05-22 11:24 | disposition home or self-care (01) ==
LOC: HO.HOS 10:53
PROVIDERS: Visit Provider Orthopaedic Surgery
DX: M17.11 Unilateral primary osteoarthritis, right knee (principal)
CPT/HCPCS: 20610; 99213

== ENCOUNTER → 2024-05-22 10:52 | Outpatient (BNVA) | payer MEDICARE, SELFPAY | PROVIDERS: Visit Provider Orthopaedic Surgery | DX: M17.11 Unilateral primary osteoarthritis, right knee (principal) | CPT/HCPCS: 20610; 99212; J2003; J7318 ==